=== PATIENT | male | born 1940 | race Caucasian/White ===

== ENCOUNTER 2019-07-10 05:57 | Day surgery (SDC) | payer MEDICARE, BC ==
[2019-07-09 08:53] VITALS: BMI 28.9
--- NOTE | 2019-07-09 11:14 | HP ---
HISTORY AND PHYSICAL CHIEF COMPLAINT: Left shoulder pain. HISTORY OF PRESENT ILLNESS: The patient is a 79-year-old, right-hand dominant, retired gentleman who presents with right shoulder pain for several months. He notes pain with overhead activity and at night. He has tried medications in addition to a previous injection with minimal relief. PAST MEDICAL HISTORY: Significant for hypertension, khs-tuasjrj-qzdhduace diabetes, arthritis, and aortic aneurysm. PAST SURGICAL HISTORY: Significant for previous right shoulder surgery. CURRENT MEDICATIONS: 1. Amlodipine. 2. Aspirin. 3. Losartan. 4. Metformin. 5. Simvastatin. FAMILY HISTORY: Significant for cancer. SOCIAL HISTORY: Significant for previous tobacco use: however, he quit in 1979. REVIEW OF SYSTEMS: A 16-point review of systems otherwise reviewed and is noncontributory. PHYSICAL EXAMINATION: On examination, the patient is approximately 5 foot 10, 200 pounds of endomorphic habitus. HEENT: Exam is nonfocal. Neck is supple. On examination of the left shoulder, he is tender about the anterior subacromial space. He has moderate subacromial crepitus. Active range of motion left shoulder, forward elevation 115 degrees, external rotation, arm at side 40 degrees, internal rotation to L2. Motor strength 5-/5 for abduction and external rotation. Impingement test, Neer tests, and Speed test are positive. His distal neurovascular appears intact in the left upper extremity. X-rays to include multiple views of the left shoulder show a type 2 acromion with diminished humeral head to acromial distance. IMPRESSION: 1. Symptomatic left rotator cuff tear. 2. Left bicipital tendinosis. RECOMMENDATION: I talked to the patient at length regarding his condition and longitudinal options. At this point, he is quite symptomatic despite conservative measures. He opts to proceed with surgery. We will plan to proceed with arthroscopic evaluation with probable subacromial decompression, possible biceps tenotomy, and probable rotator cuff repair. Risks and benefits were discussed at length in layman's terms. The patient underwent preoperative medical evaluation by Dr. Benedict. JAZMINE / DUSTY: [id number] /
[~2019-07-10 05:57] MED LIST: DEXAMETHASONE SOD PHOSPHATE 10 MG/ML 1 ML VIAL IV ONE; HYDROmorphone 0.5 MG/0.5 ML SYRINGE IVP PRN; LACTATED RINGERS 1,000 ML IV SCH; LIDOCAINE 1% 20 ML VIAL (10MG/ML) FOR IV START INTRADERMA PRN; MIDAZOLAM 2 MG/2 ML VIAL IV PRN; ONDANSETRON 4 MG/2 ML VIAL IVP ONE; SCOPOLAMINE 1.5MG/72HR PATCH TRANSDERM ONE
[2019-07-10 06:53] LABS: Glucose,Whole Blood 104 mg/dL (75-99)
[2019-07-10] MEDS ORDERED: MIDAZOLAM 2 MG/2 ML VIAL IVP ONE (07:18)
--- NOTE | 2019-07-10 07:28 | P.ANPRN ---
Procedure Note - Anesthesia - Nerve Block Performed Left Interscalene Single Time Out Performed: Yes (0718) Date of Procedure: 07/10/19 Procedure Start Time: : Procedure Stop Time: : Location of Patient Procedure: PreOp Indication: Acute Post-Operative Pain, Dx/Pain Location (Left Shoulder Pain) Sedation Type: Sedate with meaningful contact maintained Preparation: Sterile Prep Position: Supine Catheter: None Needle Types: Pajunk Needle Gauge: 21 Ultrasound used to visualize needle placement: Yes Ultrasound used to observe medication spread: Yes Injectate: 0.5% Ropivacaine (see comment for volume) (20ml with 4mg Dexamethasone) Blood Aspirated: No Pain Paresthesia on Injection Noted: No Resistance on Injection: Normal Image Stored and Saved: Yes Events: Uneventful and Well Tolerated
[2019-07-10] MEDS ORDERED: SUCCINYLCHOLINE CHLORIDE 100 MG/5 ML SYR IV ONE (07:57)
[2019-07-10] MEDS ORDERED: ROCURONIUM BROMIDE 10 MG/ML 10 ML VIAL IV ONE (07:57)
[2019-07-10] MEDS ORDERED: ROPIVACAINE 5 MG/ML 30 ML VIAL ONE (07:57)
[2019-07-10] MEDS ORDERED: NEOSTIGMINE 1 MG/ML 10 ML VIAL ONE (07:57)
[2019-07-10] MEDS ORDERED: PROPOFOL 10 MG/ML 20 ML VIAL IV ONE (07:57)
[2019-07-10] MEDS ORDERED: DEXAMETHASONE SOD PHOSPHATE 4 MG/ML 1 ML VIAL ONE (07:57)
[2019-07-10] MEDS ORDERED: LIDOCAINE 1% INJ 10MG/ML (20 ML MDV) ONE (07:57)
[2019-07-10] MEDS ORDERED: GLYCOPYRROLATE 0.2 MG/ML 2 ML VIAL ONE (07:57)
[2019-07-10] MEDS ORDERED: ePHEDrine SULFATE/0.9% NACL/PF 50 MG/5 ML SYRINGE IV ONE (07:57)
[2019-07-10] MEDS ORDERED: fentaNYL (PF) 50 MCG/ML 2 ML AMP ONE (07:57)
[2019-07-10] MEDS ORDERED: LIDOCAINE 2%-EPI 1:100,000 20 ML VIAL ONE (07:57)
[2019-07-10] MEDS ORDERED: MIDAZOLAM 2 MG/2 ML VIAL ONE (07:57)
[2019-07-10] MEDS ORDERED: EPINEPHrine (PF) 1 ML in SODIUM CHLORIDE 0.9% IRRIGATIO 3,000 ML IRRIGATION ONE ×8 (08:36)
[2019-07-10 09:31] VITALS: RESP 16; TEMP 96.8
--- NOTE | 2019-07-10 09:33 | P.OP ---
Date of Procedure: 07/10/19 Preoperative Diagnosis: Symptomatic left rotator cuff tear/bicipital tendinosis/acromioclavicular joint arthritis Postoperative Diagnosis: 1 1/2 cm rotator cuff tear, high-grade partial-thickness tear intra-articular portion long head of the biceps Procedure(s) Performed: Left shoulder arthroscopic subacromial decompression/distal clavicular resection/biceps tenotomy/rotator cuff repair Implants: Arthrex 5.5 mm swivel lock anchor 1 Anesthesia: CONTRERAS, regional Surgeon: Matthieu Lawson Estimated Blood Loss (ml): 10 Pathology: none sent Condition: stable Disposition: PACU Indications for Procedure: The patient's 79-year-old male who presents with progressive left shoulder pain over the past several years despite extensive conservative measures. A discussion of the risks and benefits of operative intervention versus continued conservative measures was made with the patient. He opted to proceed with surgery. Operative risks to include infection, neurovascular injury, development of blood clots, possible incomplete resolution of symptoms, possible tendon rerupture, possible need for subsequent procedures was discussed. Informed consent was obtained. Operative Findings: As below Description of Procedure: The patient was brought to the operating room, and after induction of general anesthesia was placed in a beachchair position. A preoperative interscalene block was placed for postoperative analgesia. I examined the left shoulder. He did have moderate stiffness, particularly with forward elevation. The left upper extremity was prepped and draped in normal fashion. The bony outlines the acromion, distal clavicle, and coracoid process were outlined with a skin marker. The glenohumeral joint was inflated with 50 mL of saline utilizing a spinal needle from posterior approach. A posterior portal was made through a 5 mm skin incision 1 cm medial and inferior to the posterior lateral border time. A blunt trocar was used to easily into the joint. Diagnostic arthroscopy was performed. An anterior portal was made just lateral to the coracoid process entering the joint above the subscapularis tendon. The subscapularis tendon appeared to be intact. Anterior labrum was intact. The inferior recess was inspected. The posterior labrum was intact. There was a high-grade partial- thickness tear of the long head of the biceps involving interarticular portion. It was elected to proceed with release at this point. This was released from the superior labrum with electrocautery and was allowed to retract to the bicipital groove. On inspection the rotator cuff, a 1 1/2 cm tear involving the supraspinatus was noted. A lateral portal was made 2 centimeters inferior to the anterior lateral border of the acromion. The rotator cuff was then mobilized with a traction suture. This was then easily brought back to the greater tuberosity. The soft tissue on the undersurface of the acromion was debrided with a motorized shaver and electrocautery clearly defining the anterior medial and lateral borders as well as the distal clavicle. An anterior inferior acromioplasty was performed with a motorized saul starting anterolateral, then extending this posteriorly, then extending this medially. I converted to a flat acromion and this was verified in the posterior and lateral viewing portals. The distal 5 mm of the clavicle was resected with a motorized bur. The greater tuberosity was lightly decorticating with a shaver down to a bleeding bony surface. A #2 fiber tape was then passed through the rotator cuff with a scorpion suture passer. This was then secured laterally with a 5.5 mm swivel lock anchor after appropriate tensioning. Final arthroscopic view showed adequate compression at the footprint. The arthroscope was then removed. The portals were closed with simple 3-0 nylon sutures. A sterile dressing was applied in addition to a sling. The patient was then awoken from general anesthesia and transferred to recovery room in good condition. Blood loss was estimated at 10 mL. No complications were incurred. Sponge and needle counts were correct in the case. Galdino SADLER assisted and the major components of the case to include arm positioning, anchor placement, and rotator cuff repair.
[2019-07-10 10:25] VITALS: BP 171/84; PULSE 62
== END 2019-07-10 11:02 | disposition home or self-care (01) ==
LOC: OR 05:57
PROVIDERS: ATTEND Orthopaedic Surgery
DX: M75.102 Unspecified rotator cuff tear or rupture of left shoulder, not specified as traumatic (principal); S46.112A Strain of muscle, fascia and tendon of long head of biceps, left arm, initial encounter; X58.XXXA Exposure to other specified factors, initial encounter; I10 Essential (primary) hypertension; E11.9 Type 2 diabetes mellitus without complications; E78.5 Hyperlipidemia, unspecified; I71.9 Aortic aneurysm of unspecified site, without rupture; M19.012 Primary osteoarthritis, left shoulder; M19.011 Primary osteoarthritis, right shoulder; N52.9 Male erectile dysfunction, unspecified; M05.9 Rheumatoid arthritis with rheumatoid factor, unspecified; Z98.42 Cataract extraction status, left eye; Z98.41 Cataract extraction status, right eye; Z96.1 Presence of intraocular lens; Z92.21 Personal history of antineoplastic chemotherapy; Z83.3 Family history of diabetes mellitus; Z82.3 Family history of stroke; Z82.49 Family history of ischemic heart disease and other diseases of the circulatory system; I35.0 Nonrheumatic aortic (valve) stenosis; Z82.61 Family history of arthritis; N40.0 Benign prostatic hyperplasia without lower urinary tract symptoms; G89.29 Other chronic pain; M51.26 Other intervertebral disc displacement, lumbar region; M51.36 Other intervertebral disc degeneration, lumbar region; M48.061 Spinal stenosis, lumbar region without neurogenic claudication; Z79.84 Long term (current) use of oral hypoglycemic drugs; Z79.891 Long term (current) use of opiate analgesic; Z79.82 Long term (current) use of aspirin; Z79.899 Other long term (current) drug therapy; Z80.9 Family history of malignant neoplasm, unspecified; Z87.891 Personal history of nicotine dependence; Z88.6 Allergy status to analgesic agent; Z88.8 Allergy status to other drugs, medicaments and biological substances
CPT/HCPCS: 29826; 29827; 29824; 64415; 76942; C1713 ×2; C1894; J2250; J1100 ×2; J2710; J0690; J2405; J0171; J2001; J3010; J2795; J0330; J2704